=== PATIENT | female | born 1965 | race African-American/Black ===

== ENCOUNTER → 2018-09-15 | Outpatient (CLI) | payer SELFPAY ==
[2018-09-15 20:38] LABS: CALCIUM 9.4 mg/dL (8.4-10.2); CREATININE, serum 0.95 mg/dL (0.52-1.25); POTASSIUM 4.3 mmol/L (3.4-5.0)
== END ==
LOC: ZCOL.LAB 20:20
PROVIDERS: Family Medicine
DX: E11.9 Type 2 diabetes mellitus without complications (principal); I10 Essential (primary) hypertension

== ENCOUNTER → 2018-09-23 | Outpatient (CLI) | payer SELFPAY | LOC: SUN.DIA 10:18 | DX: E11.9 Type 2 diabetes mellitus without complications (principal) | CPT/HCPCS: G0108 ==

== ENCOUNTER → 2018-09-30 | Outpatient (CLI) | payer OTHER ==
[2018-09-30 16:36] LABS: CALCIUM 9.5 mg/dL (8.4-10.2); CREATININE, serum 0.83 mg/dL (0.52-1.25); POTASSIUM 4.6 mmol/L (3.4-5.0)
== END ==
LOC: COL.LAB 15:21
PROVIDERS: Family Medicine
DX: I10 Essential (primary) hypertension (principal)